=== PATIENT | female | born 2000 | race Caucasian/White ===

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

== ENCOUNTER 2020-02-07 11:32 | Outpatient (CLI) | payer OTHER ==
[~2020-02-07 11:32] MED LIST: FLINTSTONES GUMMIES PO; PRENATAL1 T10 PO; PROM25TA52 PO
== END 2020-02-07 19:03 | disposition home or self-care (01) ==
LOC: LAB 11:32
DX: Z20.828 Contact with and (suspected) exposure to other viral communicable diseases (principal)
CPT/HCPCS: 87635; G2023; U0003